=== PATIENT | male | born 1990 | race Caucasian/White ===

== ENCOUNTER 2019-11-03 14:49 | Emergency (ER) | payer OTHER ==
[2019-11-03] MEDS ORDERED: BUPIVACAINE 0.5% PF 10 ML VIAL ONE (15:16)
[2019-11-03] MEDS ORDERED: LIDOCAINE 1% 20 ML MDV ONE (15:16)
[2019-11-03] MEDS ORDERED: TETANUS & DIPHTHERIA TOX,ADULT 0.5 ML VIAL ONE (15:16)
--- NOTE | 2019-11-03 15:45 | RAD REPORT ---
EXAM DESCRIPTION: RAD - Hand Left 3 View - 11/03/2019 3:36 pm CLINICAL HISTORY: PAIN COMPARISON: <Comparisons> FINDINGS: Soft tissue laceration injury is seen involving the distal second finger. There is tuft am putation present with bony fragmentation. No radiopaque foreign body seen.
--- NOTE | 2019-11-03 16:25 | EDPHYS ---
Physician Documentation [facility] Name: Arnulfo Walker Age: 29 yrs Sex: Male : 1990 Arrival Date: 11/03/2019 Time: 14:50 Bed 18 Private MD: ED Physician Felix Ware HPI: 11/02 15:31 This 29 yrs old Male presents to ER via Ambulatory with complaints of kb Laceration To Hand. 15:31 The patient has a laceration related to: cutting wood with table saw occurred outdoors, kb and there are no complicating factors. The injury was accidental. The laceration(s) is(are) located on the palmar aspect of distal phalanx of left index finger. Onset: The symptoms/episode began/occurred just prior to arrival. Associated signs and symptoms: The patient has no apparent associated signs or symptoms. The patient has not experienced similar symptoms in the past. The patient has not recently seen a physician. Historical: - Allergies: 15:09 Codeine; ph 15:09 Neosporin ([id number]); ph - Home Meds: 15:09 None [Active]; ph - PMHx: 15:09 None; ph - PSHx: 15:09 None; ph - Immunization history:: Last tetanus immunization: unknown. - Social history:: Smoking status: Patient denies any tobacco usage or history of. ROS: 15:30 Constitutional: Negative for fever, chills, and weight loss, Cardiovascular: Negative kb for chest pain, palpitations, and edema, Respiratory: Negative for shortness of breath, cough, wheezing, and pleuritic chest pain, Abdomen/GI: Negative for abdominal pain, nausea, vomiting, diarrhea, and constipation, Back: Negative for injury and pain, Neuro: Negative for headache, weakness, numbness, tingling, and seizure. 15:30 Skin: Positive for avulsion, laceration(s), of the palmar aspect of distal phalanx of left index finger. Exam: 15:30 Constitutional: This is a well developed, well nourished patient who is awake, alert, kb and in no acute distress. Head/Face: Normocephalic, atraumatic. Chest/axilla: Normal chest wall appearance and motion. Nontender with no deformity. No lesions are appreciated. Cardiovascular: Regular rate and rhythm with a normal S1 and S2. No gallops, murmurs, or rubs. Normal PMI, no JVD. No pulse deficits. Respiratory: Lungs have equal breath sounds bilaterally, clear to auscultation and percussion. No rales, rhonchi or wheezes noted. No increased work of breathing, no retractions or nasal flaring. Abdomen/GI: Soft, non-tender, with normal bowel sounds. No distension or tympany. No guarding or rebound. No evidence of tenderness throughout. MS/ Extremity: Pulses equal, no cyanosis. Neurovascular intact. Full, normal range of motion. Neuro: Awake and alert, GCS 15, oriented to person, place, time, and situation. Cranial nerves II-XII grossly intact. Motor strength 5/5 in all extremities. Sensory grossly intact. Cerebellar exam normal. Normal gait. 15:30 Skin: injury, avulsion(s), a very small of the palmar aspect of distal phalanx of left index finger. Vital Signs: 15:07 BP 138 / 94; Pulse 69; Resp 18; Temp 97.8; Pulse Ox 100% on R/A; Weight 79.38 kg; ph Height 5 ft. 9 in. (175.26 cm); 15:15 BP 119 / 81; Pulse 76; Resp 18; Pulse Ox 99% on R/A; vc 16:30 BP 125 / 84; Pulse 64; Resp 18; Pulse Ox 99% on R/A; vc 15:07 Body Mass Index 25.84 (79.38 kg, 175.26 cm) ph Procedures: 15:12 Nerve block: (digital) of dorsal aspect of proximal phalanx of left index finger and kb palmar aspect of proximal phalanx of left index finger Medication: Lidocaine 1% without epinephrine Marcaine 0.5%, Amount: 6 mls were injected, Effect: the patient has resolution of the pain, Set up for procedure. Performed by Ofe CARDENAS Patient tolerated well. Laceration: 16:17 Wound Repair of 2cm ( 0.8in ) subcutaneous laceration to palmar aspect of distal kb phalanx of left index finger. Irregularly shaped.. Skin/tissue flap noted.. Distal neuro/vascular/tendon intact. Anesthesia: Digital block administered with 1% lidocaine. Wound prep: Extensive cleansing with hibiclenz by me, Wound irrigation with saline by me, Wound margin revised. Skin closed with 2 5-0 Prolene using simple sutures and sterile technique. Patient tolerated well. MDM: 15:00 Patient medically screened. kb 15:13 Data reviewed: vital signs, nurses notes. Data interpreted: Pulse oximetry: on room air kb is 100 %. Interpretation: normal. Counseling: I had a detailed discussion with the patient and/or guardian regarding: the historical points, exam findings, and any diagnostic results supporting the discharge/admit diagnosis, radiology results, the need for outpatient follow up, a family practitioner, to return to the emergency department if symptoms worsen or persist or if there are any questions or concerns that arise at home. 16:18 ED course: Pt educated on avulsion fracture and need for follow up with hand surgeon. kb Verbal understanding received. . 11/02 15:07 Order name: Hand Left 3 View XRAY; Complete Time: 15:46 kb 11/02 15:14 Order name: Misc. Order: soak index finger in 2:1 mixture of betadine and NS for 15-20 kb minutes; Complete Time: 15:59 Administered Medications: 15:10 Drug: Lidocaine (1 %) 1 vials Volume: 5 ml; Route: Infiltration; vc 15:10 Drug: Marcaine (0.5 %) 1 vials Volume: 10 ml; Route: Infiltration; vc 15:33 Drug: Tetanus-Diphtheria Toxoid Adult 0.5 ml {Resident Care Aide: [employer]. Exp: vc 05/31/2021. Lot #: [id number]. } Route: IM; Site: right deltoid; 16:00 Follow up: Response: No adverse reaction vc 16:37 Drug: KeFLEX 500 mg Route: PO; vc 16:37 Follow up: Response: No adverse reaction; Medication administered at discharge. vc Disposition: 18:05 Co-signature as Attending Physician, Felix Ware MD I agree with the assessment and peter plan of care. Disposition: 11/03/19 16:24 Discharged to Home. Impression: Laceration without foreign body of left index finger with damage to nail, Tuft fracture left index finger. - Condition is Stable. - Discharge Instructions: Finger Fracture, [id number], Laceration Care, Adult, [id number]. - Prescriptions for Keflex 500 mg Oral Capsule - take 1 capsule by ORAL route every 8 hours for 7 days; 21 capsule. Tramadol 50 mg Oral Tablet - take 1 tablet by ORAL route every 8 hours as needed; 12 tablet. - Work release form, Medication Reconciliation Form, Thank You Letter, Antibiotic Education, Prescription Opioid Use form. - Follow up: Emergency Department; When: As needed; Reason: Worsening of condition. Follow up: Private Physician; When: 2 - 3 days; Reason: Recheck today's complaints, Continuance of care, Re-evaluation by your physician. Follow up: Truong Barnard MD; When: 2 - 3 days; Reason: Recheck today's complaints. Signatures: Dispatcher [employer] EDMS Ofe Martinez, CREATIVE PERFUMER-C CREATIVE PERFUMER-Ckb Felix Ware MD MD cha Hall, Patricia RN RN Maria Alejandra Mistry RN RN vc Corrections: (The following items were deleted from the chart) 16:57 16:24 11/03/2019 16:24 Discharged to Home. Impression: Laceration without foreign body vc of left index finger with damage to nail; Tuft fracture left index finger. Condition is Stable. Forms are Medication Reconciliation Form, Thank You Letter, Antibiotic Education, Prescription Opioid Use. Follow up: Emergency Department; When: As needed; Reason: Worsening of condition. Follow up: Private Physician; When: 2 - 3 days; Reason: Recheck today's complaints, Continuance of care, Re-evaluation by your physician. Follow up: Truong Barnard; When: 2 - 3 days; Reason: Recheck today's complaints. kb
--- NOTE | 2019-11-03 16:25 | ER ---
Nurse's Notes [facility] Name: Arnulfo Walker Age: 29 yrs Sex: Male : 1990 Arrival Date: 11/03/2019 Time: 14:50 Bed 18 Private MD: Diagnosis: Laceration without foreign body of left index finger with damage to nail;Tuft fracture left index finger Presentation: 11/02 15:07 Chief complaint: Patient states: Injured tip of L index finger w/ table saw, bleeding ph controlled. Coronavirus screen: Patient denies a cough. Patient denies shortness of breath or difficulty breathing. Patient denies measured and/or subjective temperature greater than 100.4F prior to today's visit. Patient denies travel on a cruise ship or to a country the [facility] currently lists as an affected area. Ebola Screen: No symptoms or risks identified at this time. Complicating Factors: There are no complicating factors for this patient. Initial Sepsis Screen: Does the patient meet any 2 criteria? No. Patient's initial sepsis screen is negative. Does the patient have a suspected source of infection? No. Patient's initial sepsis screen is negative. Risk Assessment: Do you want to hurt yourself or someone else? Patient reports no desire to harm self or others. Onset of symptoms was November 03, 2019. 15:07 Method Of Arrival: Ambulatory ph 15:07 Acuity: AZALEA 4 ph Triage Assessment: 15:10 General: Appears in no apparent distress. uncomfortable, slender, Behavior is calm, vc cooperative, appropriate for age. Pain: Complains of pain in palmar aspect of proximal phalanx of left index finger and dorsal aspect of proximal phalanx of left index finger Pain does not radiate. Pain currently is 10 out of 10 on a pain scale. Quality of pain is described as sharp. Injury Description: Laceration sustained to dorsal aspect of distal phalanx of left index finger is contaminated, jagged, 0.5 to 2.5 cm long, bleeding moderately, was sustained less than 30 minutes ago. Historical: - Allergies: 15:09 Codeine; ph 15:09 Neosporin ([id number]); ph - Home Meds: 15:09 None [Active]; ph - PMHx: 15:09 None; ph - PSHx: 15:09 None; ph - Immunization history:: Last tetanus immunization: unknown. - Social history:: Smoking status: Patient denies any tobacco usage or history of. Screenin:10 Abuse screen: Denies threats or abuse. Nutritional screening: No deficits noted. vc Tuberculosis screening: No symptoms or risk factors identified. Fall Risk None identified. Assessment: 15:11 Musculoskeletal: Reports pain in palmar aspect of proximal phalanx of left index finger vc and dorsal aspect of distal phalanx of left index finger. Injury Description: Laceration sustained to dorsal aspect of distal phalanx of left index finger is contaminated, jagged, 0.5 to 2.5 cm long. 15:12 General: Appears in no apparent distress. uncomfortable, slender, Behavior is calm, vc cooperative, appropriate for age. Pain: Complains of pain in dorsal aspect of distal phalanx of left index finger. Neuro: Level of Consciousness is awake, alert, obeys commands, Oriented to person, place, time, situation, Appropriate for age. Cardiovascular: Capillary refill < 3 seconds Patient's skin is warm and dry. Respiratory: Airway is patent Respiratory effort is even, unlabored, Respiratory pattern is regular, symmetrical. GI: No signs and/or symptoms were reported involving the gastrointestinal system. : No signs and/or symptoms were reported regarding the genitourinary system. Derm: Wound noted palmar aspect of proximal phalanx of left index finger and dorsal aspect of distal phalanx of left index finger. 16:00 Reassessment: Provider at bedside. Patient states feeling better. Patient states vc symptoms have improved. 16:38 Reassessment: Patient appears in no apparent distress at this time. Patient and/or vc family updated on plan of care and expected duration. Pain level reassessed. Patient is alert, oriented x 3, equal unlabored respirations, skin warm/dry/pink. Waiting for disc with xrays before discharge. Vital Signs: 15:07 BP 138 / 94; Pulse 69; Resp 18; Temp 97.8; Pulse Ox 100% on R/A; Weight 79.38 kg; ph Height 5 ft. 9 in. (175.26 cm); 15:15 BP 119 / 81; Pulse 76; Resp 18; Pulse Ox 99% on R/A; vc 16:30 BP 125 / 84; Pulse 64; Resp 18; Pulse Ox 99% on R/A; vc 15:07 Body Mass Index 25.84 (79.38 kg, 175.26 cm) ph ED Course: 14:50 Patient arrived in ED. bp1 15:00 Ofe Martinez FNP-C [facility]. kb 15:00 Felix Ware MD is Attending Physician. kb 15:01 Maria Alejandra Mistry, RN is Primary Nurse. vc 15:05 Assist provider with nerve block (digital) of dorsal aspect of proximal phalanx of left vc index finger and palmar aspect of proximal phalanx of left index finger Set up for procedure. Performed by Ofe CARDENAS Patient tolerated well. 15:09 Triage completed. ph 15:10 Arm band placed on Patient placed in an exam room, on a stretcher, on pulse oximetry. ph 15:12 Bed in low position. Call light in reach. Pulse ox on. NIBP on. vc 15:20 Wound care: to laceration located on palmar aspect of proximal phalanx of left index jp3 finger and dorsal aspect of proximal phalanx of left index finger was soaked in normal saline solution, Patient tolerated well. 15:36 Hand Left 3 View XRAY In Process Unspecified. EDMS 16:24 Truong Barnard MD is Referral Physician. kb 16:57 Patient did not have IV access during this emergency room visit. vc Administered Medications: 15:10 Drug: Lidocaine (1 %) 1 vials Volume: 5 ml; Route: Infiltration; vc 15:10 Drug: Marcaine (0.5 %) 1 vials Volume: 10 ml; Route: Infiltration; vc 15:33 Drug: Tetanus-Diphtheria Toxoid Adult 0.5 ml {Top Inventory Control Executive: [employer]. Exp: vc 05/31/2021. Lot #: [id number]. } Route: IM; Site: right deltoid; 16:00 Follow up: Response: No adverse reaction vc 16:37 Drug: KeFLEX 500 mg Route: PO; vc 16:37 Follow up: Response: No adverse reaction; Medication administered at discharge. vc Outcome: 16:24 Discharge ordered by . kb 16:56 Discharged to home ambulatory. vc 16:56 Condition: good 16:56 Discharge instructions given to patient, Instructed on discharge instructions, follow up and referral plans. medication usage, Demonstrated understanding of instructions, follow-up care, medications, Prescriptions given X 2. 16:57 Patient left the ED. vc Signatures: Dispatcher [employer] EDMS Ofe Martinez, THERESA GOMEZP-Kiki Valadez, RN RN Arnulfo Velázquez [id number] Maria Alejandra Mistry RN RN vc Marian Berman bp1 Corrections: (The following items were deleted from the chart) 15:14 15:10 Pain: Complains of pain in dorsal aspect of distal phalanx of left index finger vc and left index fingernail Pain does not radiate. Pain currently is 10 out of 10 on a pain scale. Quality of pain is described as sharp, vc 15:14 15:11 Musculoskeletal: Reports pain in dorsal aspect of distal phalanx of left index vc finger vc
[2019-11-03] MEDS ORDERED: CEPHALEXIN 250 MG CAP ONE (16:36)
[2019-11-03 17:09] VITALS: TEMP 97.8
[2019-11-03 17:10] VITALS: O2SAT 99
[2019-11-03 17:11] VITALS: BP 125/84
== END 2019-11-03 16:57 | disposition home or self-care (01) ==
LOC: ER 14:49
PROC: 0JQK0ZZ Repair Left Hand Subcutaneous Tissue and Fascia, Open Approach (ICD-10-PCS; principal; 2019-11-03)
DX: S61.311A Laceration without foreign body of left index finger with damage to nail, initial encounter (principal); S62.601A Fracture of unspecified phalanx of left index finger, initial encounter for closed fracture; W29.8XXA Contact with other powered hand tools and household machinery, initial encounter; Y93.9 Activity, unspecified; Y92.89 Other specified places as the place of occurrence of the external cause; Z23 Encounter for immunization; Z88.3 Allergy status to other anti-infective agents; Z88.5 Allergy status to narcotic agent
CPT/HCPCS: 64450; 90471; 90714; 99284